=== PATIENT | female | born 1955 | race Caucasian/White ===

== ENCOUNTER → 2024-07-08 | Day surgery (SDC) | payer OTHER, BC ==
[2024-07-04 11:30] LABS: URINE APPEARANCE Clear; URINE BILIRRUBIN Negative (NEGATIVE); URINE BLOOD Moderate; URINE COLOR Yellow; URINE GLUCOSE Negative (NEGATIVE); URINE KETONE Trace (NEGATIVE); URINE LEUKOCYTE Trace; URINE NITRATE Negative; URINE PROTEIN Trace (NEGATIVE); URINE UROBILINOGEN 0.2 E.U./dl
[2024-07-04 11:31] LABS: URINE BACTERIA 930.2 uL (0.0-1933); URINE EPITHELIAL CELLS 22.1 uL (0.0-38.8); URINE RBC 21.9 uL (0.0-20.8); URINE WBC 18.5 uL (0.0-23.2)
[2024-07-04 11:49] LABS: URINE CAST 0.29 uL (0.0-1.40)
[2024-07-04 11:55] LABS: INR 1.07; PARTIAL THROMBOPLASTIN TIME 25.4 SECONDS (22.0-34.0); PROTHROMBIN TIME 11.6 SECONDS (9.0-11.5)
[2024-07-04 12:01] VITALS: BP 139/77
[2024-07-04 12:09] LABS: ALBUMIN 3.9 gm/dL (3.4-5.0); BILIRUBIN TOTAL 0.9 mg/dL (0.3-1.2); CALCIUM 9.3 mg/dL (8.5-10.1); CREATININE SERUM 0.58 mg/dL (0.55-1.02); GFR 102.48; GLOBULINA 4.2 G/DL (2.4-3.5); POTASSIUM 4.48 mEq/L (3.5-5.1); TOTAL PROTEIN 8.1 gm/dL (6.4-8.2)
[2024-07-04 12:13] LABS: HEMATOCRIT 35.1 % (36.0-45.00); HEMOGLOBIN 11.3 g/dL (12.0-15.00); MEAN CELL VOLUME 75.2 fL (80.00-100.00); MEAN CORPUSCULAR HEMOGLOBIN 24.3 pg (27.00-32.0); MEAN CORPUSCULAR HGB CONC 32.3 g/dl (32.0-36.0); PLATELET COUNT 311 K/uL (150-450); RED BLOOD COUNT 4.66 M/uL (4.00-6.00); RED CELL DISTRIBUTION WIDTH 16.7 % (11.5-14.5)
[~2024-07-08] VITALS: Ht 152.4 cm; Wt 52.2 kg
[~2024-07-08] MED LIST: BUPIVACAINE LIPOSOME/PF 266 MG/20 ML VIAL IJ ONE; CEFTRIAXONE SODIUM 2,000 MG VIAL ONE; CELECOXIB200 MG PO; DIBUCAINE 30 GM TUBE ONE; HEMOSTATIC MATRIX 1 KIT KIT TOP ONE; INTESTINEX680 M1 PO; LIPITOR20 MG PO; METRONIDAZOLE/SODIUM CHLORIDE 500 MG/100 ML PIGGYBACK IV ONE; MULTIPLE VITAM1 EAC2 PO; NEURONTIN300 MG PO; PENTOXIFYLLINE400 MG PO; POVIDONE-IODINE 118 ML BOTT TOP ONE; REFRESH DIGITA1 EACH OP; TRAMADOL HCL50 MG PO
== END | disposition home or self-care (01) ==
LOC: ADM 07-04 09:45 → CIR.AMB 07:04
PROVIDERS: ATTEND Surgery
DX: K64.2 Third degree hemorrhoids (principal); K64.4 Residual hemorrhoidal skin tags